=== PATIENT | female | born 1985 | race Caucasian/White ===

== ENCOUNTER 2020-02-03 20:36 | Emergency (ER) | payer BC ==
[~2020-02-03] VITALS: Ht 170.2 cm; Wt 65.9 kg
[2020-02-03] MEDS ORDERED: sucralfate 1gm/10ml UD suspension PO STA (20:59)
[2020-02-03] MEDS ORDERED: LIDOcaine Viscous 15ml cup MM ONE (21:00)
[2020-02-03] MEDS ORDERED: mag hydrox/Alum hydrox/simeth 30ml oral suspension PO ONE (21:00)
[2020-02-03 21:16] LABS: BASOPHILS # (AUTO) 0.1 X10'3 (0-0.2); BASOPHILS % (AUTO) 0.6 % (0-1); EOSINOPHILS # (AUTO) 0.4 X10'3 (0-0.9); EOSINOPHILS % (AUTO) 4.6 % (0-6); HEMATOCRIT 38.8 % (35.0-45.0); HEMOGLOBIN 13.2 g/dl (12.0-16.0); LYMPHOCYTES # (AUTO) 2.6 X10'3 (1.1-4.8); LYMPHOCYTES % (AUTO) 29.5 % (21-51); MEAN CORPUSCULAR HEMOGLOBIN 30.1 PG (27.0-31.0); MEAN CORPUSCULAR HGB CONC 33.9 g/dL (33.0-36.5); MEAN CORPUSCULAR VOLUME 88.7 FL (78-98); MEAN PLATELET VOLUME 8.5 FL (7.4-10.4); MONOCYTES # (AUTO) 0.5 X10'3 (0-0.9); MONOCYTES % (AUTO) 6.3 % (2-12); NEUTROPHILS # (AUTO) 5.1 X10'3 (1.8-7.7); PLATELET COUNT 232 X10'3 (140-440); RED BLOOD COUNT 4.37 X10'6 (4.20-5.60); RED CELL DISTRIBUTION WIDTH 13.1 % (11.5-14.5); WHITE BLOOD COUNT 8.7 X10'3 (4.5-11.0)
[2020-02-03 21:21] LABS: URINE HCG NEGATIVE (NEG)
[2020-02-03 21:24] LABS: CLARITY,URINE CLEAR (Clear); COLOR,URINE YELLOW (Yellow); GLUCOSE, URINE NEGATIVE (Neg); KETONES,URINE NEGATIVE (Neg); LEUKOCYTE ESTERASE ,URINE NEGATIVE (Neg); NITRITES, URINE NEGATIVE (Neg); OCCULT BLOOD,URINE SMALL (Neg); PH,URINE 6.5 (4.8-8.0); PROTEIN,URINE NEGATIVE (Neg); UROBILINOGEN,URINE 0.2 E.U/dL (0.2-1.0)
[2020-02-03 21:25] LABS: ALANINE AMINOTRANSFERASE 13 U/L (12-78); ALBUMIN 4.1 G/DL (3.4-5.0); ALBUMIN/GLOBULIN RATIO 1.6 (1.1-1.5); ALKALINE PHOSPHATASE 34 IU/L (46-116); ANION GAP 12 (8-16); ASPARTATE AMINO TRANSFERASE 11 U/L (10-37); BILIRUBIN,TOTAL 0.6 MG/DL (0.1-1.0); BLOOD UREA NITROGEN 10 MG/DL (7-18); BUN/CREATININE RATIO 10.3 (6.6-38.0); CALCIUM 8.9 MG/DL (8.5-10.1); CHLORIDE 107 MMOL/L (99-107); CREATININE 0.97 MG/DL (0.40-0.90); GLUCOSE 100 MG/DL (70-104); LIPASE 170 U/L (73-393); POTASSIUM 3.5 MMOL/L (3.5-5.1); SODIUM 144 MMOL/L (135-145); TOTAL CARBON DIOXIDE 25.4 MMOL/L (24-32); TOTAL PROTEIN 6.6 G/DL (6.4-8.2); eGFR 65 ML/MIN
[2020-02-03 21:30] LABS: UA COLLECTION TYPE CLN CATCH MIDSTREAM
[2020-02-03 21:31] LABS: BACTERIA,URINE FEW /HPF (Neg); RBC,URINE 0-2 /HPF (0-2); SQUAMOUS EPITHELIAL CELL,UR FEW /LPF (FEW); WBC,URINE 0-4 /HPF (0-4)
--- NOTE | 2020-02-03 21:42 | NUR ---
US tech at bedside now.
[2020-02-03] MEDS ORDERED: PANT-47 PO (22:05)
[2020-02-03 22:16] VITALS: BP 123/79
== END 2020-02-03 22:10 | disposition home or self-care (01) ==
LOC: ER 20:37
DX: R10.13 Epigastric pain (principal); R11.0 Nausea; Z88.0 Allergy status to penicillin; Z79.899 Other long term (current) drug therapy
CPT/HCPCS: 36415; 76700; 80053; 81001; 81025; 83690; 84484; 85025; 93005; 99285

== ENCOUNTER 2023-01-28 15:51 | Emergency (ER) | payer BC, OTHER ==
[~2023-01-28] VITALS: Ht 170.2 cm; Wt 68.0 kg
[~2023-01-28 15:51] MED LIST: PANT-47 PO
[2023-01-28 16:07] LABS: BASOPHILS # (AUTO) 0.1 X10'3 (0-0.2); BASOPHILS % (AUTO) 0.6 % (0-1); EOSINOPHILS # (AUTO) 0.2 X10'3 (0-0.9); EOSINOPHILS % (AUTO) 1.9 % (0-6); HEMATOCRIT 42.3 % (35.0-45.0); HEMOGLOBIN 14.3 g/dl (12.0-16.0); LYMPHOCYTES % (AUTO) 20.4 % (21-51); MEAN CORPUSCULAR HEMOGLOBIN 30.2 PG (27.0-31.0); MEAN CORPUSCULAR HGB CONC 33.7 g/dL (33.0-36.5); MEAN CORPUSCULAR VOLUME 89.6 FL (78-98); MEAN PLATELET VOLUME 8.6 FL (7.4-10.4); MONOCYTES # (AUTO) 0.6 X10'3 (0-0.9); MONOCYTES % (AUTO) 5.8 % (2-12); NEUTROPHILS # (AUTO) 6.9 X10'3 (1.8-7.7); NEUTROPHILS % (AUTO) 71.3 % (42-75); PLATELET COUNT 270 X10'3 (140-440); RED BLOOD COUNT 4.72 X10'6 (4.20-5.60); RED CELL DISTRIBUTION WIDTH 13.1 % (11.5-14.5); WHITE BLOOD COUNT 9.7 X10'3 (4.5-11.0)
[2023-01-28 16:23] LABS: ALANINE AMINOTRANSFERASE 23 U/L (12-78); ALBUMIN/GLOBULIN RATIO 1.3 (1.1-1.5); ALKALINE PHOSPHATASE 27 IU/L (46-116); ANION GAP 11 (8-16); ASPARTATE AMINO TRANSFERASE 22 U/L (10-37); BILIRUBIN,TOTAL 0.4 MG/DL (0.1-1.0); BLOOD UREA NITROGEN 19 MG/DL (7-18); BUN/CREATININE RATIO 20.4 (10.0-20.0); CALCIUM 9.3 MG/DL (8.5-10.1); CHLORIDE 104 MMOL/L (99-107); CREATININE 0.93 MG/DL (0.40-0.90); GLUCOSE 125 MG/DL (70-104); POTASSIUM 3.8 MMOL/L (3.5-5.1); SODIUM 140 MMOL/L (135-145); TOTAL CARBON DIOXIDE 25.3 MMOL/L (24-32); TOTAL PROTEIN 7.2 G/DL (6.4-8.2); eGFR 67 ML/MIN
[2023-01-28] MEDS ORDERED: diazepam 5mg tablet PO ONE (17:55)
[2023-01-28 18:40] LABS: CLARITY,URINE CLEAR (Clear); COLOR,URINE YELLOW (Yellow); GLUCOSE, URINE NEGATIVE (Neg); KETONES,URINE NEGATIVE (Neg); LEUKOCYTE ESTERASE ,URINE NEGATIVE (Neg); NITRITES, URINE NEGATIVE (Neg); OCCULT BLOOD,URINE MODERATE (Neg); PH,URINE 5.5 (4.8-8.0); PROTEIN,URINE NEGATIVE (Neg); UROBILINOGEN,URINE 0.2 E.U/dL (0.2-1.0)
[2023-01-28 18:44] LABS: UA COLLECTION TYPE CLN CATCH MIDSTREAM
[2023-01-28] MEDS ORDERED: MECL-226 PO (18:46)
[2023-01-28 18:48] LABS: BACTERIA,URINE FEW /HPF (Neg); MUCUS STRANDS NONE SEEN /LPF (Neg); RBC,URINE 0-2 /HPF (0-2); SQUAMOUS EPITHELIAL CELL,UR FEW /LPF (FEW); WBC,URINE 0-4 /HPF (0-4)
[2023-01-28 18:56] VITALS: BP 128/90
== END 2023-01-28 18:58 | disposition home or self-care (01) ==
LOC: ER 15:51
DX: H81.12 Benign paroxysmal vertigo, left ear (principal); Z88.0 Allergy status to penicillin; Z88.2 Allergy status to sulfonamides
CPT/HCPCS: 36415; 70450; 80053; 81001; 83880; 84484; 85025; 93005; 99285

== ENCOUNTER 2023-07-06 06:22 | Day surgery (SDC) | payer BC, OTHER ==
[2023-06-29 14:40] LABS: URINE HCG NEGATIVE (NEG)
[2023-07-06] VITALS (10 sets, daily range): BP systolic 110–142; BP diastolic 65–100; PULSE 71–97; RESP 10–17; TEMP 97.8; O2SAT 97–100
[~2023-07-06] VITALS: Ht 170.2 cm; Wt 65.8 kg
[~2023-07-06 06:22] MED LIST changes: -PANT-47 PO; +[UNRECOGNIZED DRUG - CODE] PO; +clindamycin-Cleocin 900mg/D5W 50 ML IV ONE; +famotidine 20mg tablet PO ONE; +oxymetazoline 15 ML nasal spray NS ONE; +ringers solution, lacted 1,000 ML IV SCH; +tranexamic acid inj. 1,000 MG in normal saline IV soln 100ML IV ONE
[2023-07-06] MEDS ORDERED: cocaine 4% topical solution 4ml bottle ONE ×2 (06:54→07:24)
[2023-07-06] MEDS ORDERED: mupirocin 2% ointment 22GM ONE ×2 (06:54→07:24)
[2023-07-06] MEDS ORDERED: oxymetazoline 15 ML nasal spray NS ONE ×2 (06:55→07:24)
[2023-07-06] MEDS ORDERED: LIDOcaine 1% w/EPI 1:100,000 inj. MDV 50 ML VIAL ONE ×2 (06:55→07:24)
[2023-07-06] MEDS ORDERED: epiNEPHrine 1 mg/ml 30ml MDV ONE (07:24)
[2023-07-06] MEDS ORDERED: tranexamic acid 100mg/ml inj. ONE (07:24)
[2023-07-06] MEDS ORDERED: scopolamine 1MG/72H patch 1 PATCH PATCH.TD.3 TD ONE (07:49)
[2023-07-06] MEDS ORDERED: midazolam 1 mg/ML 2ml injection ONE (08:03)
[2023-07-06] MEDS ORDERED: propofol inj 20 ML IV ONE (08:03)
[2023-07-06] MEDS ORDERED: fentaNYL/PF 50MCG/1 ML 2ML syringe ONE (08:03)
[2023-07-06] MEDS ORDERED: sevoflurane 250ml liquid IH ONE (08:06)
[2023-07-06] MEDS ORDERED: LIDOcaine 2% (20mg/ml) 5ml vial ONE (08:06)
[2023-07-06] MEDS ORDERED: meperidine/PF 25mg/ml syringe IV PRN ×3 (08:45)
[2023-07-06] MEDS ORDERED: proCHLORperazine 10 MG/2 ml inj IV PRN (08:45)
[2023-07-06] MEDS ORDERED: morphine 2 MG/ML inj. syringe IV PRN (08:45)
[2023-07-06] MEDS ORDERED: ondansetron/PF 4mg/2ml inj IV PRN (08:45)
[2023-07-06] MEDS ORDERED: ringers solution, lacted 1,000 ML IV SCH (08:45)
[2023-07-06] MEDS ORDERED: morphine 4 MG/ML inj SYRINge IV PRN (08:45)
[2023-07-06] MEDS ORDERED: dexamethasone sod phosphate 4mg/ml inj. ONE (09:06)
[2023-07-06] MEDS ORDERED: ondansetron/PF 4mg/2ml inj ONE (09:07)
--- NOTE | 2023-07-06 09:08 | NUR ---
Received from OR via [facility] IN STABLE CONDITION , accompanied by Anesthesiologist and CORRECTION OFFICER REFORMATORY report given by CORRECTION OFFICER REFORMATORY AND Anesthesiolgist. Addendum: 07/06/23 at 0917 by Frances Gomez RN Amended: Links added.
[2023-07-06] MEDS ORDERED: bacitracin 15gm ointment TP ONE (09:25)
[2023-07-06] MEDS ORDERED: salt irrigation nasal spray 45 ML SPRAY NS PRN (09:25)
[2023-07-06] MEDS ORDERED: mupirocin 2% nasal ointment 1gm UD NS STA (10:06)
--- NOTE | 2023-07-06 10:48 | NUR ---
PATIENT DISCHARGED FROM PACU IN STABLE CONDITION AFTER WRITTEN AND VERBAL DISCHARGE INSTRUCTIONS GIVEN. PATIENT GAVE VERBAL UNDERSTANDING OF INSTRUCTIONS. PATIENT LEFT FACILITY VIA WHEELCHAIR WITH RN. Addendum: 07/06/23 at 1112 by Frances Gomez RN Amended: Links added.
== END 2023-07-06 10:48 | disposition home or self-care (01) ==
LOC: PAS 06:22
PROVIDERS: ATTEND Otolaryngology
DX: J34.2 Deviated nasal septum (principal); J34.3 Hypertrophy of nasal turbinates; G43.909 Migraine, unspecified, not intractable, without status migrainosus; F41.9 Anxiety disorder, unspecified; Z88.0 Allergy status to penicillin; Z88.2 Allergy status to sulfonamides; Z79.899 Other long term (current) drug therapy; Z98.890 Other specified postprocedural states
CPT/HCPCS: 30140; 30520; 81025; 82948; A6402; J0171; J1100; J2250; J2405; J2704; J3010; J3490; J7030; J7120; Z7506; Z7508; Z7512; A4618; A6449; A7000